=== PATIENT | female | born 1990 | race African-American/Black ===

== ENCOUNTER 2018-05-24 21:00 | Emergency (ER) | payer MEDICAID, OTHER ==
[~2018-05-24] VITALS: Ht 177.8 cm; Wt 77.0 kg
[2018-05-24] MEDS ORDERED: SODIUM CHLORIDE 0.9% 1,000 ML IV ONE (22:24)
[2018-05-24 22:53] LABS: CLARITY URINE CLEAR (CLEAR); COLOR URINE ORANGE (YELLOW); KETONES URINE NEGATIVE (NEGATIVE); LEUKOCYTE ESTERASE URINE NEGATIVE (NEGATIVE); NITRITE URINE NEGATIVE (NEGATIVE); OCCULT BLOOD URINE 3+ (NEGATIVE); PH URINE >=9.0 (4.5-8.0); PROTEIN URINE TRACE (NEGATIVE)
[2018-05-24 22:58] LABS: BASOPHILS % 0.3 % (0.0-2.0); EOSINOPHILS % 1.6 % (0.0-5.0); HEMATOCRIT. 35.4 % (36.0-48.0); HEMOGLOBIN. 12.2 g/dL (12.0-16.0); LYMPHOCYTES % 21.3 % (20.0-50.0); MEAN CORPUSCULAR HEMOGLOBIN 29.1 pg (28.0-32.0); MEAN CORPUSCULAR VOLUME 84.6 fL (81.0-99.0); MEAN PLATELET VOLUME 7.6 fl (7.4-10.4); MONOCYTES % 8.4 % (2.0-8.0); NEUTROPHILS % 68.4 % (40.0-76.0); PLATELET 236 x1000/uL (130-400); RED BLOOD CELL COUNT 4.18 mill/uL (4.2-5.4); RED CELL DISTRIBUTION WIDTH 15.8 % (11.6-14.6)
[2018-05-24 23:04] LABS: CHLORIDE 107 mEq/L (98-107)
[2018-05-24 23:28] LABS: B-HCG QUANTITATIVE 119594 mIU/mL (<3)
[2018-05-25 01:22] VITALS: BP 105/77
== END 2018-05-25 01:25 | disposition home or self-care (01) ==
LOC: ER 21:00
DX: O20.0 Threatened abortion (principal); Z3A.10 10 weeks gestation of pregnancy; O26.891 Other specified pregnancy related conditions, first trimester; R03.0 Elevated blood-pressure reading, without diagnosis of hypertension; R00.0 Tachycardia, unspecified
CPT/HCPCS: 36415; 76801; 76817; 80053; 81003; 84702; 85025; 86850; 86900; 86901; 99284; J7030

== ENCOUNTER 2018-12-09 05:06 | Inpatient (IN) | payer MEDICAID ==
[~2018-12-09] VITALS: Ht 175.3 cm; Wt 94.3 kg
[2018-12-09] MEDS ORDERED: MISOPROSTOL 100MCG TABLET VG SCH (05:45)
[2018-12-09] MEDS ORDERED: METHYLERGONOVINE MALEATE 0.2 MG/ML IM PRN (05:45)
[2018-12-09] MEDS ORDERED: CARBOPROST TROMETHAMINE 250 MCG/ML AMPUL IM PRN (05:45)
[2018-12-09] MEDS ORDERED: NALOXONE HCL 0.4 MG/ML 1ML VIAL IM PRN (05:45)
[2018-12-09] MEDS ORDERED: BUTORPHANOL TARTRATE 2 MG/ML VIAL IV PRN (05:45)
[2018-12-09] MEDS ORDERED: LIDOCAINE HCL 1% 20ML VIAL (Pyxis) INJ INFIL SCH (05:45)
[2018-12-09] MEDS: LACTATED RINGERS 1,000 ML IV SCH ×2 (06:01→14:00)
[2018-12-09] MEDS: CLINDAMYCIN 900 MG in DEXTROSE 5% WATER 50 ML IV SCH ×2 (06:20→12:05)
[2018-12-09 06:27] LABS: HEMATOCRIT. 28.5 % (36.0-48.0); HEMOGLOBIN. 9.8 g/dL (12.0-16.0); MEAN CORPUSCULAR HEMOGLOBIN 29.8 pg (28.0-32.0); MEAN PLATELET VOLUME 8.6 fl (7.4-10.4); PLATELET 202 x1000/uL (130-400); RED BLOOD CELL COUNT 3.27 mill/uL (4.2-5.4); RED CELL DISTRIBUTION WIDTH 12.8 % (11.6-14.6)
[2018-12-09 06:29] LABS: CLARITY URINE CLEAR (CLEAR); COLOR URINE YELLOW (YELLOW); KETONES URINE NEGATIVE (NEGATIVE); LEUKOCYTE ESTERASE URINE NEGATIVE (NEGATIVE); NITRITE URINE NEGATIVE (NEGATIVE); OCCULT BLOOD URINE NEGATIVE (NEGATIVE); PH URINE 7.5 (4.5-8.0); PROTEIN URINE NEGATIVE (NEGATIVE); SPECIFIC GRAVITY URINE 1.007 (1.005-1.030); UROBILINOGEN URINE 0.2 E.U./dL (0.2-1.0)
[2018-12-09 06:55] LABS: CHLORIDE 108 mEq/L (98-107)
[2018-12-09 06:57] LABS: INR 0.9; PARTIAL THROMBOPLASTIN TIME 28.5 sec (23.4-31.0); PROTHROMBIN TIME 9.4 sec (9.6-11.0)
[2018-12-09] MEDS ORDERED: QUET25TA PO (07:19)
[2018-12-09] MEDS ORDERED: PREN1TAB78 PO (07:19)
[2018-12-09] MEDS ORDERED: FERR325T6 PO (07:19)
[2018-12-09 07:57] LABS: *AMPHETAMINES SCREEN URINE NEGATIVE (NEGATIVE); *BENZODIAZEPINES SCREEN URINE NEGATIVE (NEGATIVE)
[2018-12-09 07:58] LABS: *BARBITURATES SCREEN URINE NEGATIVE (NEGATIVE)
[2018-12-09 08:00] LABS: *COCAINE SCREEN URINE NEGATIVE (NEGATIVE); METHADONE URINE SCREEN NEGATIVE (NEGATIVE)
[2018-12-09 08:01] LABS: OPIATES URINE SCREEN NEGATIVE (NEGATIVE); PHENCYCLIDINE URINE SCREEN NEGATIVE (NEGATIVE)
[2018-12-09 08:04] LABS: CANNABINOID URINE SCREEN PRESUMTIVE POSITIVE (NEGATIVE)
[2018-12-09] MEDS ORDERED: ROPIVACAINE HCL/PF EPIDURAL 200 ML EPI SCH (09:45)
[2018-12-09 13:55] LABS: PLATELET ESTIMATE NORMAL
[2018-12-09] MEDS ORDERED: DEXT 5%/LR + PITOCIN 20UNITS/L 1,000 ML IV SCH ×2 (16:21→19:31)
[2018-12-09] MEDS ORDERED: FENTANYL CITRATE/PF 50MCG/ML 2ML VIAL ONE (16:36)
[2018-12-09] MEDS ORDERED: CLINDAMYCIN 900 MG PREMIX 50 ML IV SCH (18:00)
[2018-12-09] MEDS ORDERED: GLYCERIN/WITCH HAZEL LEAF MEDICATED PAD TOP PRN (19:45)
[2018-12-09] MEDS ORDERED: HEMORRHOIDAL SUPP PR PRN (19:45)
[2018-12-09] MEDS ORDERED: BISACODYL 10MG SUPP PR PRN (19:45)
[2018-12-09] MEDS ORDERED: OXYCODONE HCL/ACETAMINOPHEN 5/325MG TABLET PO PRN (19:45)
[2018-12-09] MEDS ORDERED: ACETAMINOPHEN WITH CODEINE 300/30MG TABLET PO PRN (19:45)
[2018-12-09] MEDS ORDERED: BENZOCAINE/LANOLIN/ALOE VERA SPRAY TOP PRN (19:45)
[2018-12-09 21:00] VITALS: BP 134/88
[2018-12-09] MEDS ORDERED: MAGNESIUM/ALUMINUM HYDROXIDE/SIMETHICONE 30ML UDC PO SCH (21:00)
[2018-12-09 21:30] VITALS: BP 139/81
[2018-12-09] MEDS: IBUPROFEN 400MG TABLET PO PRN (21:49)
[2018-12-09 22:00] VITALS: BP 131/81
[2018-12-09] MEDS: DOCUSATE SODIUM 100MG CAPSULE PO SCH (23:01)
[2018-12-09] MEDS: SIMETHICONE 80MG TABLET CHEW PO SCH (23:02)
[2018-12-10 04:00] VITALS: BP 112/65
[2018-12-10 06:52] LABS: BASOPHILS % 0.2 % (0.0-2.0); EOSINOPHILS % 0.5 % (0.0-5.0); HEMATOCRIT. 24.5 % (36.0-48.0); HEMOGLOBIN. 8.5 g/dL (12.0-16.0); LYMPHOCYTES % 13.8 % (20.0-50.0); MEAN CORPUSCULAR HEMOGLOBIN 29.9 pg (28.0-32.0); MEAN CORPUSCULAR VOLUME 86.6 fL (81.0-99.0); MEAN PLATELET VOLUME 7.6 fl (7.4-10.4); MONOCYTES % 6.6 % (2.0-8.0); NEUTROPHILS % 78.9 % (40.0-76.0); PLATELET 157 x1000/uL (130-400); RED BLOOD CELL COUNT 2.83 mill/uL (4.2-5.4)
[2018-12-10] MEDS ORDERED: FERROUS SULFATE 325MG TABLET PO SCH (07:30)
[2018-12-10 09:00] VITALS: BP 126/74
[2018-12-10] MEDS ORDERED: PRENATAL VIT/FE FUMARATE/FA TABLET PO SCH (09:00)
[2018-12-10] MEDS ORDERED: QUETIAPINE FUMARATE 25MG TABLET PO SCH ×2 (09:00→21:00)
[2018-12-10] MEDS ORDERED: CLINDAMYCIN 900 MG in DEXTROSE 5% WATER 50 ML IV SCH (13:00)
[2018-12-10] MEDS: IBUPROFEN 400MG TABLET PO PRN (14:53)
[2018-12-10] MEDS: DOCUSATE SODIUM 100MG CAPSULE PO SCH (20:44)
[2018-12-10] MEDS: SIMETHICONE 80MG TABLET CHEW PO SCH (20:46)
[2018-12-10 22:00] VITALS: BP 128/78
[2018-12-11 05:34] VITALS: BP 121/73
[2018-12-11 08:00] VITALS: BP 132/76
== END 2018-12-12 11:15 | disposition home or self-care (01) | DRG 560 ==
LOC: 8 EST LDRP 05:06 → OBSVTOIN 05:06 → 8 EST LDRP 07:45 → 8EST 21:57
PROVIDERS: ADMIT Obstetrics & Gynecology; ATTEND Obstetrics & Gynecology
PROC: 10D07Z6 Extraction of Products of Conception, Vacuum, Via Natural or Artificial Opening (ICD-10-PCS; principal; 2018-12-09)
PROC: 3E0R33Z Introduction of Anti-inflammatory into Spinal Canal, Percutaneous Approach (ICD-10-PCS; 2018-12-09)
PROC: 00HU33Z Insertion of Infusion Device into Spinal Canal, Percutaneous Approach (ICD-10-PCS; 2018-12-09)
DX: O10.92 Unspecified pre-existing hypertension complicating childbirth (principal); F20.9 Schizophrenia, unspecified; O99.324 Drug use complicating childbirth; O90.81 Anemia of the puerperium; F12.10 Cannabis abuse, uncomplicated; O99.344 Other mental disorders complicating childbirth; Z3A.39 39 weeks gestation of pregnancy; Z37.0 Single live birth
CPT/HCPCS: 36415; 76805; 76818; 80305; 80349; 81003; 86592; 86703; 86762; 86850; 86900; 87340; 99281; J2590; J2795; J3010; J3490; J7060; J7120

== ENCOUNTER 2021-05-28 15:49 | Emergency (ER) | payer MEDICAID | END 2021-05-28 18:29 | disposition left against medical advice (07) | LOC: ER 15:49 | DX: Z53.21 Procedure and treatment not carried out due to patient leaving prior to being seen by health care provider (principal) ==